=== PATIENT | male | born 1955 | race Caucasian/White ===

== ENCOUNTER 2023-03-27 07:24 | Day surgery (SDC) | payer BC ==
[2023-03-24 14:43] LABS: Absolute Lymphocytes (CBC) 1.2 K/uL (0.7-4.9); Hematocrit 41.6 % (39.6-49.0); Lymphocytes % 19.5 % (15.3-44.8); MCV 93.4 fL (80-100); MPV 8.5 fL (7.6-11.3); Platelets 212 thou/uL (152-406); RBC Red Blood Cell Count 4.46 M/uL (4.33-5.43)
[2023-03-24 14:52] LABS: Protime INR 1.05
--- NOTE | 2023-03-24 15:01 | RAD REPORT ---
EXAM DESCRIPTION: RAD - Chest Pa And Lat (2 Views) - 03/24/2023 2:39 pm CLINICAL HISTORY: pre op carotid angoi Chest pain. COMPARISON: No comparisons TECHNIQUE: PA and lateral views of the chest were obtained. FINDINGS: The lungs are hyperexpanded compatible with COPD. The heart is upper limit of normal in si ze. No fracture or aggressive bony process. Small hiatal hernia. IMPRESSION: COPD without acute process identified. The USPSTF recommends annual screening for lung cancer with low-dose CT (LDCT) in adults aged 50 to 8 0 years who have a 20 pack-year smoking history and currently smoke or have quit within the past 15 y ears.
[2023-03-24 15:28] LABS: Potassium 3.6 mEq/L (3.5-5.1)
--- NOTE | 2023-03-26 13:29 | EKG ---
Test Date: 2023-03-24 Test Time: 15:16:36 [employer]person [employer]: RITU MEASUREMENT RESULTS: Intervals: Rate: 67 NM: 176 QRSD: 142 QT: 430 QTc: 454 [place]: P: 83 NM: 176 QRS: 84 T: 27 INTERPRETIVE STATEMENTS: Normal sinus rhythm Right bundle branch block Abnormal ECG No previous ECG available for comparison Electronically Signed On 03-26-23 13:23:20 RN QUALITY by Sumeet Green
[2023-03-27] MEDS ORDERED: NA CHLORIDE 0.9% 500 ML ONE (07:55)
[2023-03-27] MEDS ORDERED: LIDOCAINE 1% 20 ML MDV ONE (08:21)
[2023-03-27] MEDS ORDERED: HEPA 1000U/500MLS 2,000 UNIT/1,000 ML BAG IV ONE (08:21)
[2023-03-27] MEDS ORDERED: FENTANYL CITR 100 MCG/2 ML ONE (08:56)
[2023-03-27] MEDS ORDERED: ATROPINE SULF 1 MG/10 ML SYR IV ONE (08:57)
[2023-03-27] MEDS ORDERED: MIDAZOLAM HCL 2 MG/2 ML INJ ONE (08:57)
[2023-03-27] MEDS ORDERED: HEPARIN 10,000 UNIT/10 ML VIAL IV ONE (08:57)
[2023-03-27 12:03] VITALS: BP 142/47; O2SAT 99
--- NOTE | 2023-03-27 14:48 | OP ---
Date of Procedure: 03/27/2023 Surgeon: JW MORA Procedure Performed: Bilateral selective carotid angiogram. Indication: Carotid stenosis by Doppler. Access: Right femoral artery, 6-Kosovan, closed with 6-Kosovan Angio-Seal. Complications: None. Bleeding: Less than 20 mL. Total Sedation Time: 30 minutes. Description Of Procedure: After risks, benefits, alternatives were explained, patient agreed to proc eed and signed informed consent. Patient was brought into the cardiac catheterization laboratory, pr epped and draped in sterile fashion. Then, I accessed right femoral artery using micropuncture kit, ultrasound guidance, and fluoroscopy, placed a 6-Kosovan Hickman sheath and took 6-Kosovan 3DRC cathet er into the aortic root, engaged the right common carotid artery, took standard views and then the le ft common carotid artery, took standard views. The catheter was removed, sheath was removed, and the n 6-Kosovan Angio-Seal was used for closure. Good hemostasis. Findings: 1.Right common carotid is normal, right internal carotid is normal, and right external carotid is no rmal. 2.Left common carotid is normal and the left external carotid is normal. The patient has 50% stenos is in the proximal left internal carotid artery. Conclusion: Moderate left internal carotid artery stenosis 50% and the right side is normal. Plan: Medical management. SR/MODL Voice ID: [id number] Report ID: [id number]
== END 2023-03-27 12:00 | disposition home or self-care (01) ==
LOC: CCL 07:24
PROVIDERS: ATTEND Internal Medicine
DX: I65.22 Occlusion and stenosis of left carotid artery (principal); I11.0 Hypertensive heart disease with heart failure; I50.32 Chronic diastolic (congestive) heart failure; I45.10 Unspecified right bundle-branch block; E78.5 Hyperlipidemia, unspecified; I35.1 Nonrheumatic aortic (valve) insufficiency; I71.20 Thoracic aortic aneurysm, without rupture, unspecified; I71.21 Aneurysm of the ascending aorta, without rupture; Q21.0 Ventricular septal defect; Z87.891 Personal history of nicotine dependence; Z79.82 Long term (current) use of aspirin; Z79.899 Other long term (current) drug therapy
CPT/HCPCS: 93005; 85025; 80048; 36415; 83721; 85610; 85730; 71046; 36222; 76937; C1893; C1760; G0269; J2001; J2250; J3010; J7040; 99152; 99153; J0461